=== PATIENT | female | born 1950 | race Native Hawaiian/Other Pacific Islander ===

== ENCOUNTER 2020-10-26 14:02 | Outpatient (CLI) | payer OTHER | END 2020-10-26 23:58 | disposition home or self-care (01) | LOC: INF 14:02 | PROVIDERS: ATTEND Internal Medicine | DX: Z23 Encounter for immunization (principal) | CPT/HCPCS: 96372 ==

== ENCOUNTER 2020-11-23 12:06 | Outpatient (CLI) | payer OTHER | END 2020-11-23 21:58 | disposition home or self-care (01) | LOC: INF 12:06 | PROVIDERS: ATTEND Internal Medicine | DX: Z23 Encounter for immunization (principal) | CPT/HCPCS: 96372 ==